=== PATIENT | female | born 1995 | race Caucasian/White ===

== ENCOUNTER 2016-10-07 11:16 | Inpatient (IN) ==
--- NOTE | 2016-10-07 11:39 | Emergency Department Note ---
Disposition Clinical Impression: Suicide attempt Depression Qualifiers: Depression Type: major depressive disorder Major depression recurrence: recurrent Major depression episode severity: moderate Intentional acetaminophen overdose Qualifiers: Encounter type: initial encounter Qualified Code(s): T39.1X2A - Poisoning by 4- Aminophenol derivatives, intentional self-harm, initial encounter Disposition: Admitted As Inpatient Condition: Good General Adult HPI - General Chief complaint: ED Psychiatric Symptoms Stated complaint: SI Time Seen by Provider: 10/07/16 11:20 Nursing Notes Reviewed: Yes Vital Signs Reviewed: Yes - Related Data Home Medications Medication Instructions Recorded Confirmed No Known Home Drugs 10/07/16 10/07/16 Allergies Allergy/AdvReac Type Severity Reaction Status Date / Time No Known Allergies Allergy Verified 10/07/16 11:46 Past Medical History - Past Medical History Medical history: Reports: no medical history Surgical history: Reports: other Psychiatric history: Reports: no psych history 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 - Social History Smoking Status: Current every day smoker Smokeless Tobacco Status: No Alcohol use: Reports: none Drug use: Reports: none Course Vital Signs Temperature 97.8 F 10/07/16 11:20 Pulse Rate 76 10/07/16 11:20 Respiratory Rate 15 10/07/16 11:20 Blood Pressure 112/75 10/07/16 11:20 O2 Sat by Pulse Oximetry 100 10/07/16 11:20 Temperature 97.4 F L 10/07/16 18:23 Pulse Rate 84 10/07/16 18:23 Respiratory Rate 16 10/07/16 18:23 Blood Pressure 118/74 10/07/16 18:23 O2 Sat by Pulse Oximetry 100 10/07/16 11:20 Oxygen Delivery Oxygen Delivery Room Air Medical Decision Making - MDM Narrative Medical decision making narrative: I examined this patient and my medical decision-making was reviewed with the SUPERVISOR CRACK OFF/PA/Advanced Practice Nurse/Resident Physician. I agree with the documented findings, disposition and treatment plan as described except to the extent set forth below. Patient was seen and evaluated today by myself and Dr. Hernandez, I agree with his evaluation and management plan, supervise care the patient's stay. Patient has a history of depression. She says she took multiple medications around 10 AM this morning consisting of acetaminophen over- the-counter Aleve Motrin her mom's pain medication which is most likely a narcotic. She is not sedated here. She appears to be stable she will need seen by psychiatry after she is medically cleared. Regular seen him at the level lab she will need a repeat acetaminophen level done at 2 PM as that will make a 4 hour level. She family is in agreement with plan. 1230 hrs.: Patient's initial acetaminophen level was 22, we will get a 4 hour level at 1300 hrs. to determine her potential for risk on the [place] nomogram. Her other labs are reviewed. She stable at this time. [address] Once her repeat acetaminophen level is back will determine whether she needs medical admission or she needs psychiatric admission and evaluation. 1430 hrs.: Patient's repeat acetaminophen level is 22 which is well below the 150 line on the nomogram. Reconfirmed with her time ingestion was 10 AM. Were going to clear her to be evaluated by 1A. She is in agreement with this plan. Family is updated. 1730 hrs.: 1A agrees to admit her. She has a [address] impression is that depression, suicide attempt, - Lab Data Result diagrams: 10/07/16 11:41 10/07/16 11:41 Lab Results 10/07/16 10/07/16 10/07/16 Range/Units 11:41 11:41 11:50 WBC 9.9 (4.3-11.1) K/mcL RBC 5.05 H (3.82-4.97) M/mcL Hgb 14.0 (11.5-15.4) g/dL Hct 42.3 (35.3-44.9) % MCV 83.8 (83.0-100.0) fL MCH 27.7 L (28.0-33.3) pg MCHC 33.1 (31.6-35.5) g/dL RDW 13.7 (11.5-14.5) % Plt Count 286 (140-400) K/mcL MPV 9.9 (9.4-12.4) fL Immature Gran % 0.2 (0-4) % Seg Neutrophils % 73.7 % Lymphocytes % 20.8 % Monocytes % 4.3 % Eosinophils % 0.6 % Basophils % 0.4 % Neutrophils # 7.3 (1.6-8.9) K/mcL Lymphocytes # 2.1 (0.6-4.6) K/mcL Monocytes # 0.4 (0.0-1.3) K/mcL Eosinophils # 0.1 (0.0-0.6) K/mcL Basophils # 0.0 (0.0-0.2) K/mcL Sodium 137 (136-145) mEq/L Potassium 4.1 (3.5-4.5) mEq/L Chloride 107 (98-109) mEq/L Carbon Dioxide 19 (19-29) mEq/L BUN 13 (7-20) mg/dL Creatinine 0.85 (0.57-1.11) mg/dL Est GFR ( Amer) > 60 (> 60) Est GFR (Non-Af Amer) > 60 (> 60) BUN/Creatinine Ratio 15 (6-26) Glucose 118 H (70-99) mg/dL Calculated Osmolality 285 (280-300) Calcium 9.8 (8.6-10.8) mg/dL Total Bilirubin 1.5 H (0.2-1.2) mg/dL AST 13 (5-34) Units/L ALT 15 (0-55) Units/L Alkaline Phosphatase 61 (38-126) Units/L Serum Total Protein 7.6 (6.0-8.3) g/dL Albumin 4.2 (3.5-5.0) g/dL Globulin 3.4 (2.4-3.5) g/dL Albumin/Globulin Ratio 1.2 (1.1-2.2) Urine Color Yellow (Yellow) Urine Clarity Cloudy A (Clear) Urine pH 6.0 (5.0-8.0) pH Units Ur Specific [place] > 1.030 H (1.010-1.025) Urine Protein 30 H (Neg-Trace) mg/dL Urine Glucose (UA) Normal (Normal) mg/dL Urine Ketones 40 H (Negative) mg/dL Urine Blood Negative (Negative) Urine Nitrite Negative (Negative) Urine Bilirubin Small H (Negative) Urine Urobilinogen Normal (Normal) mg/dL Ur Leukocyte Esterase Trace H (Negative) Urine Microscopic WBC 5-15 H (0-3) per hpf Ur Squamous Epith Cells Many H (None-Few) per lpf Urine Bacteria Many H (None-Few) per hpf Ur Culture Indicated? YES A (NO) Urine Test (Negative) Salicylates < 5.0 L (15-30) mg/dL Urine Opiates Screen (Pbphfb=083) ng/mL Acetaminophen 22.0 (10-30) mcg/mL Ur Barbiturates Screen (Muanuo=218) ng/mL Ur Phencyclidine Scrn (Cutoff=25) ng/mL Ur Amphetamines Screen (Hxzusz=0976) ng/mL U Benzodiazepines Scrn (Hwscrq=347) ng/mL Urine Cocaine Screen (Cutoff= 300) ng/mL U Marijuana (THC) Screen (Cutoff = 50) ng/mL Ethyl Alcohol < 10 (0-10) mg/dL 10/07/16 10/07/16 10/07/16 Range/Units 11:50 11:50 14:10 WBC (4.3-11.1) K/mcL RBC (3.82-4.97) M/mcL Hgb (11.5-15.4) g/dL Hct (35.3-44.9) % MCV (83.0-100.0) fL MCH (28.0-33.3) pg MCHC (31.6-35.5) g/dL RDW (11.5-14.5) % Plt Count (140-400) K/mcL MPV (9.4-12.4) fL Immature Gran % (0-4) % Seg Neutrophils % % Lymphocytes % % Monocytes % % Eosinophils % % Basophils % % Neutrophils # (1.6-8.9) K/mcL Lymphocytes # (0.6-4.6) K/mcL Monocytes # (0.0-1.3) K/mcL Eosinophils # (0.0-0.6) K/mcL Basophils # (0.0-0.2) K/mcL Sodium (136-145) mEq/L Potassium (3.5-4.5) mEq/L Chloride (98-109) mEq/L Carbon Dioxide (19-29) mEq/L BUN (7-20) mg/dL Creatinine (0.57-1.11) mg/dL Est GFR ( Amer) (> 60) Est GFR (Non-Af Amer) (> 60) BUN/Creatinine Ratio (6-26) Glucose (70-99) mg/dL Calculated Osmolality (280-300) Calcium (8.6-10.8) mg/dL Total Bilirubin (0.2-1.2) mg/dL AST (5-34) Units/L ALT (0-55) Units/L Alkaline Phosphatase (38-126) Units/L Serum Total Protein (6.0-8.3) g/dL Albumin (3.5-5.0) g/dL Globulin (2.4-3.5) g/dL Albumin/Globulin Ratio (1.1-2.2) Urine Color (Yellow) Urine Clarity (Clear) Urine pH (5.0-8.0) pH Units Ur Specific [place] (1.010-1.025) Urine Protein (Neg-Trace) mg/dL Urine Glucose (UA) (Normal) mg/dL Urine Ketones (Negative) mg/dL Urine Blood (Negative) Urine Nitrite (Negative) Urine Bilirubin (Negative) Urine Urobilinogen (Normal) mg/dL Ur Leukocyte Esterase (Negative) Urine Microscopic WBC (0-3) per hpf Ur Squamous Epith Cells (None-Few) per lpf Urine Bacteria (None-Few) per hpf Ur Culture Indicated? (NO) Urine Test Negative (Negative) Salicylates (15-30) mg/dL Urine Opiates Screen Positive H (Ivpfgc=331) ng/mL Acetaminophen 22.0 (10-30) mcg/mL Ur Barbiturates Screen Negative (Jtnjtx=658) ng/mL Ur Phencyclidine Scrn Negative (Cutoff=25) ng/mL Ur Amphetamines Screen Negative (Nrlmpg=4953) ng/mL U Benzodiazepines Scrn Negative (Heudsh=536) ng/mL Urine Cocaine Screen Negative (Cutoff= 300) ng/mL U Marijuana (THC) Screen Negative (Cutoff = 50) ng/mL Ethyl Alcohol (0-10) mg/dL
--- NOTE | 2016-10-07 11:40 | Emergency Department Note ---
Disposition Clinical Impression: Suicide attempt Depression Qualifiers: Depression Type: major depressive disorder Major depression recurrence: recurrent Active/Remission status: currently active Major depression episode severity: unspecified Qualified Code(s): F33.9 - Major depressive disorder, recurrent, unspecified Intentional acetaminophen overdose Qualifiers: Encounter type: initial encounter Qualified Code(s): T39.1X2A - Poisoning by 4- Aminophenol derivatives, intentional self-harm, initial encounter Disposition: Admitted As Inpatient Condition: Good Time of Disposition: 17:28 Psych HPI - General Chief Complaint: ED Psychiatric Symptoms Stated Complaint: SI Time Seen by Provider: 10/07/16 11:20 Source: patient Mode of arrival: ambulatory Limitations: no limitations Nursing Notes Reviewed: Yes Vital Signs Reviewed: Yes - History of Present Illness HPI Narrative: 21-year-old female history of depression and prescription drug abuse presents to the ED for suicidal attempt. Patient reports a verbal argument with her last night. Today she woke up and did not want to live. She reports taking multiple medications today including Tylenol, aspirin, Advil and mothers prescription pain medications. She reports taking all at 10 o'clock this morning. The Tylenol was a full bottle and roughly contained 120 pills she reports. Denies any nausea or vomiting. Reports attempting to hang herself around 0800 this morning but the rope broke. She has an abrasion on her left forehead from playful wrestling with her . She denies any shortness of breath, difficulty in swallowing or neck pain. History of prior suicidal attempt 4 years ago 2011 which required admission. She denies any other drug use such as alcohol or IV drugs. Also reports prescribed Zoloft since 2011 but has not taken it for the last 4 months since May. Denies any visual or auditory hallucinations. - Related Data Home Medications Medication Instructions Recorded Confirmed No Known Home Drugs 10/07/16 10/07/16 Allergies Allergy/AdvReac Type Severity Reaction Status Date / Time No Known Allergies Allergy Verified 10/07/16 11:46 All systems ED: reviewed and negative except as stated. Constitutional: Denies: fever, chills Cardiovascular: Denies: chest pain Respiratory: Denies: cough, dyspnea Gastrointestinal: Denies: abdominal pain, nausea, vomiting, diarrhea Genitourinary: Denies: urgency, dysuria Musculoskeletal: Denies: back pain, neck pain Integumentary: Denies: rash, abrasion, lesions Neurological: Denies: headache Psychiatric: Reports: anxiety, depression, suicidal thoughts Past Medical History - Past Medical History Attestation: Yes The following information was validated with the patient. 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 Absent: tenderness - Expanded Neck Exam Neck exam focused ED: Absent: midline tenderness, anterior neck swelling - Chest Chest inspection: Present: normal inspection, symmetric chest wall rise - Respiratory Respiratory exam: Present: normal lung sounds bilaterally. Absent: respiratory distress - Cardiovascular Cardiovascular exam: Present: regular rate, normal rhythm, normal heart sounds. Absent: systolic murmur, diastolic murmur - Abdominal Exam Abdominal exam: Present: soft, Non-Tender, normal bowel sounds. Absent: tenderness, distention, guarding, rebound, rigidity - Extremities Exam Extremities exam: Present: normal inspection, full ROM, normal capillary refill. Absent: tenderness, pedal edema, calf tenderness - Expanded Upper Extremity Exam Shoulder exam: Present: normal inspection, full ROM Arm exam: Present: normal inspection, full ROM Elbow exam: Present: normal inspection, full ROM Forearm/Wrist exam: Present: normal inspection, full ROM Hand exam: Present: normal inspection, full ROM Vascular exam: Normal: capillary refill, radial pulse - Expanded Lower Extremity Exam Hip/Pelvis exam: Present: normal inspection, full ROM Upper leg exam: Present: normal inspection, full ROM Knee exam: Present: normal inspection, full ROM Lower leg exam: Present: normal inspection, full ROM Ankle exam: Present: normal inspection, full ROM Foot/toe exam: Present: normal inspection, full ROM Neurovascular/Tendon exam: Present: normal capillary refill. Absent: pulse deficit, motor deficit, sensory deficit, tendon deficit - Back Exam Back exam: Present: normal inspection, full ROM. Absent: tenderness, CVA tenderness (R), CVA tenderness (L), vertebral tenderness - Neurological Exam Neurological exam: Present: alert, oriented X3 - Psychiatric Psychiatric exam: Present: normal affect, normal mood - Skin Skin exam: Present: warm, dry, intact, normal color Course Course Narrative: 21-year-old female with suicide attempt. She is alert and oriented to person place and time. She is awake and does not appear sedated. No acute distress. No anterior neck swelling or extremity weakness. No midline tenderness. We will get basic labs for medical clearance and I-A consult. Due to report of tylenol ingestion will get a 4 hour APAP level. [place] slip signed and placed on chart. - Reevaluation(s) Reevaluation #1: Tylenol elevated at 22. Opiate positive. This is consistent with her story. Urine appears contaminated with many squamous cells and trace leuk esterase. Will check a repeat in tylenol in 2 hours for a 4 hour post-ingestion level. Time: 12:08 Reevaluation #2: Repeat Tylenol 22 at 4 hours post ingestion. This is well below the 150 on the nomogram. Reconfirmed with her the time of ingestion and reports at 1000. She is cleared for evaluation for 1-A. Family updated of labs results and urine. Patient is in agreement with this plan. Appropriate for 1-A consult at this time. Time: 14:43 - Consultations Consultation #1: Spoke with Gaston from 1-A. Due to suicide attempt with intentional drug ingestion and failed hanging, appropriate for admission to 1-A. Impression is suicide attempt with intentional tylenol ingestion. Patient is in no acute distress. She has pink slipped 72 hour hold signed and on her chart. Time: 17:39 Vital Signs Temperature 97.8 F 10/07/16 11:20 Pulse Rate 76 10/07/16 11:20 Respiratory Rate 15 10/07/16 11:20 Blood Pressure 112/75 10/07/16 11:20 O2 Sat by Pulse Oximetry 100 10/07/16 11:20 Temperature 97.4 F L 10/07/16 21:00 Pulse Rate 65 10/07/16 21:00 Respiratory Rate 16 10/07/16 21:00 Blood Pressure 126/81 10/07/16 21:00 O2 Sat by Pulse Oximetry 100 10/07/16 11:20 Oxygen Delivery Oxygen Delivery Room Air Psych - Medical Records Medical records reviewed: Yes I reviewed the patient's medical records. - Lab Data Lab results reviewed: Yes I reviewed the patient's lab results. Result diagrams: 10/07/16 11:41 10/07/16 11:41 Lab Results 10/07/16 10/07/16 10/07/16 Range/Units 11:41 11:41 11:50 WBC 9.9 (4.3-11.1) K/mcL RBC 5.05 H (3.82-4.97) M/mcL Hgb 14.0 (11.5-15.4) g/dL Hct 42.3 (35.3-44.9) % MCV 83.8 (83.0-100.0) fL MCH 27.7 L (28.0-33.3) pg MCHC 33.1 (31.6-35.5) g/dL RDW 13.7 (11.5-14.5) % Plt Count 286 (140-400) K/mcL MPV 9.9 (9.4-12.4) fL Immature Gran % 0.2 (0-4) % Seg Neutrophils % 73.7 % Lymphocytes % 20.8 % Monocytes % 4.3 % Eosinophils % 0.6 % Basophils % 0.4 % Neutrophils # 7.3 (1.6-8.9) K/mcL Lymphocytes # 2.1 (0.6-4.6) K/mcL Monocytes # 0.4 (0.0-1.3) K/mcL Eosinophils # 0.1 (0.0-0.6) K/mcL Basophils # 0.0 (0.0-0.2) K/mcL Sodium 137 (136-145) mEq/L Potassium 4.1 (3.5-4.5) mEq/L Chloride 107 (98-109) mEq/L Carbon Dioxide 19 (19-29) mEq/L BUN 13 (7-20) mg/dL Creatinine 0.85 (0.57-1.11) mg/dL Est GFR ( Amer) > 60 (> 60) Est GFR (Non-Af Amer) > 60 (> 60) BUN/Creatinine Ratio 15 (6-26) Glucose 118 H (70-99) mg/dL Calculated Osmolality 285 (280-300) Calcium 9.8 (8.6-10.8) mg/dL Total Bilirubin 1.5 H (0.2-1.2) mg/dL AST 13 (5-34) Units/L ALT 15 (0-55) Units/L Alkaline Phosphatase 61 (38-126) Units/L Serum Total Protein 7.6 (6.0-8.3) g/dL Albumin 4.2 (3.5-5.0) g/dL Globulin 3.4 (2.4-3.5) g/dL Albumin/Globulin Ratio 1.2 (1.1-2.2) Urine Color Yellow (Yellow) Urine Clarity Cloudy A (Clear) Urine pH 6.0 (5.0-8.0) pH Units Ur Specific [place] > 1.030 H (1.010-1.025) Urine Protein 30 H (Neg-Trace) mg/dL Urine Glucose (UA) Normal (Normal) mg/dL Urine Ketones 40 H (Negative) mg/dL Urine Blood Negative (Negative) Urine Nitrite Negative (Negative) Urine Bilirubin Small H (Negative) Urine Urobilinogen Normal (Normal) mg/dL Ur Leukocyte Esterase Trace H (Negative) Urine Microscopic WBC 5-15 H (0-3) per hpf Ur Squamous Epith Cells Many H (None-Few) per lpf Urine Bacteria Many H (None-Few) per hpf Ur Culture Indicated? YES A (NO) Urine Test (Negative) Salicylates < 5.0 L (15-30) mg/dL Urine Opiates Screen (Hnaawx=047) ng/mL Acetaminophen 22.0 (10-30) mcg/mL Ur Barbiturates Screen (Ydyrsg=598) ng/mL Ur Phencyclidine Scrn (Cutoff=25) ng/mL Ur Amphetamines Screen (Sgdaxi=9553) ng/mL U Benzodiazepines Scrn (Rudpkd=016) ng/mL Urine Cocaine Screen (Cutoff= 300) ng/mL U Marijuana (THC) Screen (Cutoff = 50) ng/mL Ethyl Alcohol < 10 (0-10) mg/dL 10/07/16 10/07/16 10/07/16 Range/Units 11:50 11:50 14:10 WBC (4.3-11.1) K/mcL RBC (3.82-4.97) M/mcL Hgb (11.5-15.4) g/dL Hct (35.3-44.9) % MCV (83.0-100.0) fL MCH (28.0-33.3) pg MCHC (31.6-35.5) g/dL RDW (11.5-14.5) % Plt Count (140-400) K/mcL MPV (9.4-12.4) fL Immature Gran % (0-4) % Seg Neutrophils % % Lymphocytes % % Monocytes % % Eosinophils % % Basophils % % Neutrophils # (1.6-8.9) K/mcL Lymphocytes # (0.6-4.6) K/mcL Monocytes # (0.0-1.3) K/mcL Eosinophils # (0.0-0.6) K/mcL Basophils # (0.0-0.2) K/mcL Sodium (136-145) mEq/L Potassium (3.5-4.5) mEq/L Chloride (98-109) mEq/L Carbon Dioxide (19-29) mEq/L BUN (7-20) mg/dL Creatinine (0.57-1.11) mg/dL Est GFR ( Amer) (> 60) Est GFR (Non-Af Amer) (> 60) BUN/Creatinine Ratio (6-26) Glucose (70-99) mg/dL Calculated Osmolality (280-300) Calcium (8.6-10.8) mg/dL Total Bilirubin (0.2-1.2) mg/dL AST (5-34) Units/L ALT (0-55) Units/L Alkaline Phosphatase (38-126) Units/L Serum Total Protein (6.0-8.3) g/dL Albumin (3.5-5.0) g/dL Globulin (2.4-3.5) g/dL Albumin/Globulin Ratio (1.1-2.2) Urine Color (Yellow) Urine Clarity (Clear) Urine pH (5.0-8.0) pH Units Ur Specific [place] (1.010-1.025) Urine Protein (Neg-Trace) mg/dL Urine Glucose (UA) (Normal) mg/dL Urine Ketones (Negative) mg/dL Urine Blood (Negative) Urine Nitrite (Negative) Urine Bilirubin (Negative) Urine Urobilinogen (Normal) mg/dL Ur Leukocyte Esterase (Negative) Urine Microscopic WBC (0-3) per hpf Ur Squamous Epith Cells (None-Few) per lpf Urine Bacteria (None-Few) per hpf Ur Culture Indicated? (NO) Urine Test Negative (Negative) Salicylates (15-30) mg/dL Urine Opiates Screen Positive H (Rfurej=617) ng/mL Acetaminophen 22.0 (10-30) mcg/mL Ur Barbiturates Screen Negative (Hgeodn=641) ng/mL Ur Phencyclidine Scrn Negative (Cutoff=25) ng/mL Ur Amphetamines Screen Negative (Gggzet=3362) ng/mL U Benzodiazepines Scrn Negative (Yzajaq=450) ng/mL Urine Cocaine Screen Negative (Cutoff= 300) ng/mL U Marijuana (THC) Screen Negative (Cutoff = 50) ng/mL Ethyl Alcohol (0-10) mg/dL Psychiatric Medical Clearance - Medical Clearance Checklist Medical History: No Social History Section defined Current Vitals: Last Vital Signs Temp 97.4 F L 10/07/16 21:00 Pulse 65 10/07/16 21:00 Resp 16 10/07/16 21:00 BP 126/81 10/07/16 21:00 Pulse Ox 100 10/07/16 11:20 Psychiatric Lab Panel: Drug Levels and Toxicity 10/07/16 10/07/16 10/07/16 11:41 11:50 14:10 Urine Opiates Screen Positive H Acetaminophen 22.0 22.0 Ur Barbiturates Screen Negative Ur Phencyclidine Scrn Negative Ur Amphetamines Screen Negative U Benzodiazepines Scrn Negative Urine Cocaine Screen Negative U Marijuana (THC) Screen Negative Ethyl Alcohol < 10 Abnormal Labs: Abnormal lab results RBC 5.05 M/mcL (3.82-4.97) H 10/07/16 11:41 MCH 27.7 pg (28.0-33.3) L 10/07/16 11:41 Glucose 118 mg/dL (70-99) H 10/07/16 11:41 Total Bilirubin 1.5 mg/dL (0.2-1.2) H 10/07/16 11:41 Urine Clarity Cloudy (Clear) A 10/07/16 11:50 Ur Specific [place] > 1.030 (1.010-1.025) H 10/07/16 11:50 Urine Protein 30 mg/dL (Neg-Trace) H 10/07/16 11:50 Urine Ketones 40 mg/dL (Negative) H 10/07/16 11:50 Urine Bilirubin Small (Negative) H 10/07/16 11:50 Ur Leukocyte Esterase Trace (Negative) H 10/07/16 11:50 Urine Microscopic WBC 5-15 per hpf (0-3) H 10/07/16 11:50 Ur Squamous Epith Cells Many per lpf (None-Few) H 10/07/16 11:50 Urine Bacteria Many per hpf (None-Few) H 10/07/16 11:50 Ur Culture Indicated? YES (NO) A 10/07/16 11:50 Salicylates < 5.0 mg/dL (15-30) L 10/07/16 11:41 Urine Opiates Screen Positive ng/mL (Yinxdh=875) H 10/07/16 11:50 Statement of Medical Clearance: I have evaluated the patient, reviewed diagnostic information, and certify that the patient's medical condition is sufficiently stable that transfer to the psychiatric unit does not pose a significant risk of deterioration.
[2016-10-07 11:49] LABS: Basophils % 0.4 %; Eosinophils # 0.1 K/mcL (0.0-0.6); Eosinophils % 0.6 %; Hematocrit 42.3 % (35.3-44.9); Immature Granulocytes % 0.2 % (0-4); Lymphocytes # 2.1 K/mcL (0.6-4.6); Lymphocytes % 20.8 %; Mean Corpuscular HGB Conc 33.1 g/dL (31.6-35.5); Mean Corpuscular Hemoglobin 27.7 pg (28.0-33.3); Mean Corpuscular Volume 83.8 fL (83.0-100.0); Mean Platelet Volume 9.9 fL (9.4-12.4); Monocytes # 0.4 K/mcL (0.0-1.3); Monocytes % 4.3 %; Neutrophils # 7.3 K/mcL (1.6-8.9); Platelet Count 286 K/mcL (140-400); Red Blood Count 5.05 M/mcL (3.82-4.97); Red Cell Distribution Width 13.7 % (11.5-14.5); Segmented Neutrophils % 73.7 %
[2016-10-07 12:01] LABS: Bilirubin,Urine Small (Negative); Blood,Urine Negative (Negative); Clarity,Urine Cloudy (Clear); Color,Urine Yellow (Yellow); Glucose,Urine (UA) Normal (Normal); Ketones,Urine 40 mg/dL (Negative); Leukocyte Esterase,Urine Trace (Negative); Nitrite,Urine Negative (Negative); Protein,Urine 30 mg/dL (Neg-Trace); Specific Gravity,Urine > 1.030 (1.010-1.025); Urobilinogen,Urine Normal (Normal)
[2016-10-07 12:03] LABS: Bacteria,Urine Many per hpf (None-Few); Squamous Epithelial Cell,Urine Many per lpf (None-Few)
[2016-10-07 12:03] LABS: Alanine Aminotransferase 15 Units/L (0-55); Albumin 4.2 g/dL (3.5-5.0); Albumin/Globulin Ratio 1.2 (1.1-2.2); Alkaline Phosphatase 61 Units/L (38-126); Aspartate Amino Transferase 13 Units/L (5-34); BUN/Creatinine Ratio 15 (6-26); Bilirubin,Total 1.5 mg/dL (0.2-1.2); Blood Urea Nitrogen 13 mg/dL (7-20); Calcium 9.8 mg/dL (8.6-10.8); Carbon Dioxide 19 mEq/L (19-29); Chloride 107 mEq/L (98-109); Globulin 3.4 g/dL (2.4-3.5); Glucose 118 mg/dL (70-99); Osmolality,Calculated 285 (280-300); Potassium 4.1 mEq/L (3.5-4.5); Sodium 137 mEq/L (136-145); Total Protein 7.6 g/dL (6.0-8.3); eGFR For African Americans > 60 (> 60); eGFR For Non-African Americans > 60 (> 60)
[2016-10-07 12:04] LABS: Ethanol < 10 mg/dL (0-10); Salicylate < 5.0 mg/dL (15-30)
[2016-10-07 12:06] LABS: Amphetamine Screen,Urine Negative ng/mL (Cutoff=1000); Barbiturate Screen,Urine Negative ng/mL (Cutoff=200); Benzodiazepines Screen,Urine Negative ng/mL (Cutoff=200); Cannabinoid Screen,Urine Negative ng/mL (Cutoff = 50); Cocaine Screen,Urine Negative ng/mL (Cutoff= 300); Opiate Screen,Urine Positive ng/mL (Cutoff=300); Phencyclidine Screen,Urine Negative ng/mL (Cutoff=25)
[2016-10-07] MEDS ORDERED: *HR* LORazepam 2 MG/ML VIAL IM PRN (18:17)
[2016-10-07] MEDS ORDERED: hydrOXYzine pamoate 25 MG CAPSULE PO PRN (18:17)
[2016-10-07] MEDS ORDERED: Haloperidol Lactate 5 MG/ML VIAL IM PRN (18:17)
[2016-10-07] MEDS ORDERED: MOM Conc 10 ML UD.LIQ PO PRN (18:17)
[2016-10-07] MEDS ORDERED: Nicotine 2 MG GUM BC PRN (18:17)
[2016-10-07] MEDS ORDERED: Acetaminophen 325 MG TABLET PO PRN (18:17)
[2016-10-07] MEDS ORDERED: *HR* LORazepam 1 MG TABLET PO PRN (18:17)
[2016-10-07] MEDS ORDERED: Mag Hydrox/Al Hydrox/Simeth 30 ML UDC PO PRN (18:17)
--- NOTE | 2016-10-08 09:56 | Psychiatry History & Physical ---
Date of Encounter: 10/08/16 Time of Encounter: 09:54 History of Present Illness Patient Stated Chief Complaint: Suicidal Medicare Admission Attestation: For traditional Medicare patients the provided hospital inpatient services are reasonable and necessary and in the case of services not specified as inpatient -only under 42 CFR 419.22 (n), that they are appropriately provided as inpatient services in accordance 42 CFR 412.3. For Critical Access Hospital the patient may reasonably be expected to be discharged or transferred to a hospital within 96 hours after admission to the Critical Access Hospital. Admitted From: Emergency Dept History of Present Illness: Ms. Nunez is a 21 year old female admitted from the emergency department for evaluation of suicidal ideation. Patient is stressed out by relationship problem between her and her significant other. Patient stated that she had no previous attempted suicide In the past but she was cutting herself until 2 years ago. Patient had some counseling and treatment for depression with Zoloft in the past but denies any psychiatric hospitalization. Patient denies any mental illness history in the family. She is going to school to get her STD and a certification and currently unemployed. She smokes one pack cigarettes a day and consumes some caffeine but denies any alcohol products or drugs. Past Med Surg Social Fam HX - Past Medical History Medical history: no medical history - Past Psychiatric History Psychiatric history: Reports: anxiety, depression. Denies: prior suicide attempt, previous psychiatric hospitalization Family psychiatric history: Unknown Family History of Suicide: Unknown - Past Surgical History Surgical History: other - Social History Smoking Status: Current every day smoker Smokeless Tobacco Status: No Alcohol use: none Drug use: none Medications & Allergies No Known Home Drugs 10/07/16 [History] Allergies No Known Allergies Allergy (Verified 10/07/16 11:46) Review of Systems Psychiatric: Reports: depression, anxiety, suicidal ideation Mental Status Exam Patient orientation: Yes Person, Yes Time, Yes Place Level of alertness: Alert Patient appearance: Appropriate, Well Groomed, Obese Behavior: calm, cooperative Psychomotor activity: Normal Eye contact: Maintains Eye Contact Mood description: Euthymic/stable Affect description: congruent with mood, full range Speech pattern: Normal rate, Normal rhythm, Normal tone Speech volume: Normal Thought process: Linear, Goal Oriented Thought content: Yes Suicidal ideation, No Homicidal ideation, No Overt delusions Perceptual disturbances: No Auditory hallucinations, No Visual hallucinations Attention span: Capable of Focused Attention Memory description: Grossly Intact Patient reliability: Reliable Historian Intelligence estimate: Average Judgment: Limited Insight: Partial Results - Vital Signs Vital signs: Temp Pulse Resp BP Pulse Ox 97.4 F L 65 16 126/81 100 10/07/16 21:00 10/07/16 21:00 10/07/16 21:00 10/07/16 21:00 10/07/16 11:20 - Labs Labs: Laboratory Last Values WBC 9.9 K/mcL (4.3-11.1) 10/07/16 11:41 RBC 5.05 M/mcL (3.82-4.97) H 10/07/16 11:41 Hgb 14.0 g/dL (11.5-15.4) 10/07/16 11:41 Hct 42.3 % (35.3-44.9) 10/07/16 11:41 MCV 83.8 fL (83.0-100.0) 10/07/16 11:41 MCH 27.7 pg (28.0-33.3) L 10/07/16 11:41 MCHC 33.1 g/dL (31.6-35.5) 10/07/16 11:41 RDW 13.7 % (11.5-14.5) 10/07/16 11:41 Plt Count 286 K/mcL (140-400) 10/07/16 11:41 MPV 9.9 fL (9.4-12.4) 10/07/16 11:41 Immature Gran % 0.2 % (0-4) 10/07/16 11:41 Seg Neutrophils % 73.7 % 10/07/16 11:41 Lymphocytes % 20.8 % 10/07/16 11:41 Monocytes % 4.3 % 10/07/16 11:41 Eosinophils % 0.6 % 10/07/16 11:41 Basophils % 0.4 % 10/07/16 11:41 Neutrophils # 7.3 K/mcL (1.6-8.9) 10/07/16 11:41 Lymphocytes # 2.1 K/mcL (0.6-4.6) 10/07/16 11:41 Monocytes # 0.4 K/mcL (0.0-1.3) 10/07/16 11:41 Eosinophils # 0.1 K/mcL (0.0-0.6) 10/07/16 11:41 Basophils # 0.0 K/mcL (0.0-0.2) 10/07/16 11:41 Sodium 137 mEq/L (136-145) 10/07/16 11:41 Potassium 4.1 mEq/L (3.5-4.5) 10/07/16 11:41 Chloride 107 mEq/L (98-109) 10/07/16 11:41 Carbon Dioxide 19 mEq/L (19-29) 10/07/16 11:41 BUN 13 mg/dL (7-20) 10/07/16 11:41 Creatinine 0.85 mg/dL (0.57-1.11) 10/07/16 11:41 Est GFR ( Amer) > 60 (> 60) 10/07/16 11:41 Est GFR (Non-Af Amer) > 60 (> 60) 10/07/16 11:41 BUN/Creatinine Ratio 15 (6-26) 10/07/16 11:41 Glucose 118 mg/dL (70-99) H 10/07/16 11:41 Calculated Osmolality 285 (280-300) 10/07/16 11:41 Calcium 9.8 mg/dL (8.6-10.8) 10/07/16 11:41 Total Bilirubin 1.5 mg/dL (0.2-1.2) H 10/07/16 11:41 AST 13 Units/L (5-34) 10/07/16 11:41 ALT 15 Units/L (0-55) 10/07/16 11:41 Alkaline Phosphatase 61 Units/L (38-126) 10/07/16 11:41 Serum Total Protein 7.6 g/dL (6.0-8.3) 10/07/16 11:41 Albumin 4.2 g/dL (3.5-5.0) 10/07/16 11:41 Globulin 3.4 g/dL (2.4-3.5) 10/07/16 11:41 Albumin/Globulin Ratio 1.2 (1.1-2.2) 10/07/16 11:41 Urine Color Yellow (Yellow) 10/07/16 11:50 Urine Clarity Cloudy (Clear) A 10/07/16 11:50 Urine pH 6.0 pH Units (5.0-8.0) 10/07/16 11:50 Ur Specific [place] > 1.030 (1.010-1.025) H 10/07/16 11:50 Urine Protein 30 mg/dL (Neg-Trace) H 10/07/16 11:50 Urine Glucose (UA) Normal mg/dL (Normal) 10/07/16 11:50 Urine Ketones 40 mg/dL (Negative) H 10/07/16 11:50 Urine Blood Negative (Negative) 10/07/16 11:50 Urine Nitrite Negative (Negative) 10/07/16 11:50 Urine Bilirubin Small (Negative) H 10/07/16 11:50 Urine Urobilinogen Normal mg/dL (Normal) 10/07/16 11:50 Ur Leukocyte Esterase Trace (Negative) H 10/07/16 11:50 Urine Microscopic WBC 5-15 per hpf (0-3) H 10/07/16 11:50 Ur Squamous Epith Cells Many per lpf (None-Few) H 10/07/16 11:50 Urine Bacteria Many per hpf (None-Few) H 10/07/16 11:50 Ur Culture Indicated? YES (NO) A 10/07/16 11:50 Urine Test Negative (Negative) 10/07/16 11:50 Salicylates < 5.0 mg/dL (15-30) L 10/07/16 11:41 Urine Opiates Screen Positive ng/mL (Sfwrjg=620) H 10/07/16 11:50 Acetaminophen 22.0 mcg/mL (10-30) 10/07/16 14:10 Ur Barbiturates Screen Negative ng/mL (Kphcap=220) 10/07/16 11:50 Ur Phencyclidine Scrn Negative ng/mL (Cutoff=25) 10/07/16 11:50 Ur Amphetamines Screen Negative ng/mL (Rcxkvq=3305) 10/07/16 11:50 U Benzodiazepines Scrn Negative ng/mL (Glbwny=091) 10/07/16 11:50 Urine Cocaine Screen Negative ng/mL (Cutoff= 300) 10/07/16 11:50 U Marijuana (THC) Screen Negative ng/mL (Cutoff = 50) 10/07/16 11:50 Ethyl Alcohol < 10 mg/dL (0-10) 10/07/16 11:41 Assessment and Plan (1) Depression, major, recurrent, moderate Current visit: Yes Status: Acute Plan: Admit inpatient for safety and stabilization, Close observation, Suicide Precautions per unit protocol, Encourage participation in unit milieu, Group Therapy, Monitor sleep, Monitor appetite Additional Plan: We will start patient on Effexor XR 75 mg for treatment of depression. Benefits and side effects were discussed and she is agreeable. Risks, benefits, side effects, alternatives discussed w/pt: Yes Patient agreeable to treatment: Yes
[2016-10-08] MEDS: Venlafaxine XR (24 HR) 75 MG CAP.ER.24H PO SCH (11:55)
[2016-10-08] MEDS: traZODone 50 MG TABLET PO PRN (20:24)
[2016-10-09] MEDS: Venlafaxine XR (24 HR) 75 MG CAP.ER.24H PO SCH (09:18)
[2016-10-09] MEDS: Nicotine 21 MG PATCH.TD24 TD SCH (15:56)
[2016-10-09 20:07] VITALS: BP 126/74
[2016-10-09] MEDS: traZODone 50 MG TABLET PO PRN (22:00)
--- NOTE | 2016-10-10 08:30 | Psychiatry Progress Note ---
Date of Encounter: 10/09/16 Time of Encounter: 11:00 Subjective Interval history: Patient is here for follow-up. Staff reported that she tolerated the medication participation in groups and reported improved mood and denied suicidal ideation. Patient stated that she tolerated the medicine and denies any side effects she was making positive comments on being in the hospital she is looking forward to get her certification and stay busy. She is interested in learning skills and and applying that in crisis or stressful situation. She reports sleeping better. Review of Systems Psychiatric: Reports: depression, anxiety, suicidal ideation Objective: Exam Patient orientation: Yes Person, Yes Time, Yes Place Level of alertness: Alert Patient appearance: Appropriate, Well Groomed, Obese Behavior: calm, cooperative Psychomotor activity: Normal Eye contact: Maintains Eye Contact Mood description: Euthymic/stable Affect description: congruent with mood, full range Speech pattern: Normal rate, Normal rhythm, Normal tone Speech volume: Normal Thought process: Linear, Goal Oriented Thought content: No Suicidal ideation, No Homicidal ideation, No Overt delusions Perceptual disturbances: No Auditory hallucinations, No Visual hallucinations Judgment: Limited Insight: Partial Results - Vital Signs Vital Signs: Temp Pulse Resp BP Pulse Ox 97.4 F L 70 16 126/74 100 10/09/16 20:06 10/09/16 20:06 10/09/16 20:06 10/09/16 20:06 10/07/16 11:20 Assessment and Plan (1) Depression, major, recurrent, moderate Current visit: Yes Status: Acute Plan: Continue hospitalization, Close observation, Suicide Precautions per unit protocol, Encourage participation in unit milieu, Group Therapy, Monitor sleep, Monitor appetite Risks, benefits, side effects, alternatives discussed w/pt: Yes Patient agreeable to treatment: Yes Consult Discharge Plan - Plan Referrals: [facility] [Outside] - 11/02/16 2:00 pm (The above appointment is with Melissa Hoover for counseling. Please arrive 10 minutes early for all appointments to complete the check-in process. Please bring your insurance card or HCAP award letter, and photo ID to this appointment. If you are unable to keep this appointment, 24 hour business notice of cancellation is expected. If you miss your new patient appointment, you cannot be re-scheduled in this practice. The [facility] is the [facility] in [place], [place]. ) Swapnil Torres CNP [Advanced Practice Nurse] - 10/16/16 11:00 am (The above appointment is with Lia Torres.)
[2016-10-10] MEDS: Venlafaxine XR (24 HR) 75 MG CAP.ER.24H PO SCH (08:53)
[2016-10-10] MEDS: Nicotine 21 MG PATCH.TD24 TD SCH (08:54)
--- NOTE | 2016-10-10 10:20 | Discharge Summary ---
Date of Encounter: 10/10/16 Time of Encounter: 10:17 Diagnosis - Discharge Diagnosis (1) Depression, major, recurrent, moderate Status: Acute Medications - Discharge Medications Prescriptions: Venlafaxine XR (24 HR) [Effexor XR] 75 mg PO DAILY #30 cap.er.24h Venlafaxine XR (24 HR) [Effexor XR] 75 mg PO DAILY #30 cap.er.24h 10/10/16 [Rx] Allergies No Known Allergies Allergy (Verified 10/07/16 11:46) Provider Date of admission: 10/07/16 17:36 Primary care physician: PCP NO Discharging clinician: Jad Garcia Assessment and Plan - Patient/Caregiver Discharge Instructions Activity: resume usual activities as tolerated Diet: regular diet - Follow up Plan Follow up with: [facility] [Outside] - 11/02/16 2:00 pm (The above appointment is with Melissa Hoover for counseling. Please arrive 10 minutes early for all appointments to complete the check-in process. Please bring your insurance card or HCAP award letter, and photo ID to this appointment. If you are unable to keep this appointment, 24 hour business notice of cancellation is expected. If you miss your new patient appointment, you cannot be re-scheduled in this practice. The [facility] is the 1st building behind [facility] in [place], [place]. ) Swapnil Torres CNP [Advanced Practice Nurse] - 10/16/16 11:00 am (The above appointment is with Lia Torres.) Functional capacity at discharge: independent ambulation Overall status at discharge: Stable Disposition: Home, Self-Care Hospital Course Hospital course: Ms. Nunez is a 21 year old female admitted to the emergency room for evaluation depression and suicidal ideation. For details of the admission please see H&P On the unit patient was started on Effexor XR 75 mg she tolerated the medication and denied side effects and reported improved sleep and improved somewhat. She participated in groups and activities she denies any problem with sleep appetite she denied any suicidal ideation she was future oriented and excited about certification and a new job . Discharge follow-up plans were completed by social secretary. - Time Spent with Patient Total time spent providing and/or coordinating discharge services: Less than 30 minutes Quality - Multiple Antipsychotics Patient discharged on 2 or more antipsychotic medications: No Procedures - Procedures Procedures: Medication Management, Crisis Stabilization, Supportive Therapy, Group Therapy, Psychoeducational Therapy Mental Status Exam - Mental Status Exam Patient orientation: Yes Person, Yes Time, Yes Place Level of alertness: Alert Patient appearance: Appropriate, Well Groomed, Obese Behavior: calm, cooperative Psychomotor activity: Normal Eye contact: Maintains Eye Contact Mood description: Euthymic/stable Affect description: congruent with mood, full range Speech pattern: Normal rate, Normal rhythm, Normal tone Speech Volume: Normal Thought process: Linear, Goal Oriented Thought Content: No Suicidal ideation, No Homicidal ideation, No Overt delusions Perceptual Disturbances: No Auditory hallucinations, No Visual hallucinations Judgment: Limited Insight: Partial
== END 2016-10-10 11:35 | disposition home or self-care (01) | DRG 918 ==
LOC: EMEROO 11:16 → 1ANU 17:36
PROVIDERS: ADMIT Psychiatry & Neurology Psychiatry; ATTEND Psychiatry & Neurology Psychiatry

== ENCOUNTER → 2018-07-24 22:42 | Observation (INO) ==
--- NOTE | 2018-07-24 20:37 | OB/GYN Progress Note ---
Date of Encounter: 07/24/18 Time of Encounter: 20:25 - Assessment and Plan (1) 21 weeks gestation of Current Visit: Yes Status: Acute Urine - indicative of UTI; culture pending. One dose of macrobid PO and discharge home with Rx Vaginosis panel - gardnerella +; Rx for flagyl given FHTs -appropriate for gestation Discharge home with PTL precautions Follow up in office as scheduled and PRN POC per consult with Dr Troy (2) Cramping affecting , antepartum Current Visit: Yes Status: Acute Subjective - Subjective Principal diagnosis: Cramping Interval history: Ms Nunez is a at 21 weeks 6 days that presents to triage with c/o cramping and lower back pain. She is seen by Dr Gill for her care. She has a significant medical history for a 1A psychology admission. She states positive movement. She denies leaking of fluid, headaches, vision changes, epigastric pain, and vaginal discharge/bleeding. Antepartum ROS: movement normal Objective - Exam FHR: auscultation normal, category 1 FHR comments: 160 - appropriate for gestation age. No contractions per toco. Auscultation: bilateral: normal Abdomen: Present: normal appearance, soft, gravid Uterus: Present: normal
[2018-07-24 21:21] LABS: Bilirubin,Urine Negative (Negative); Blood,Urine Negative (Negative); Clarity,Urine Cloudy (Clear); Color,Urine Dark Yellow (Yellow); Glucose,Urine (UA) Normal (Normal); Ketones,Urine Trace mg/dL (Negative); Leukocyte Esterase,Urine Large (Negative); Nitrite,Urine Positive (Negative); Protein,Urine 30 mg/dL (Neg-Trace); Specific Gravity,Urine 1.016 (1.010-1.025)
[2018-07-24 21:23] LABS: Bacteria,Urine Many per hpf (None-Few); Hyaline Casts,Urine None Seen per lpf (None-Few); Squamous Epithelial Cell,Urine Many per lpf (None-Few); WBC,Urine TNTC per hpf (0-3)
[2018-07-24 21:32] LABS: Amphetamine Screen,Urine Negative ng/mL (Cutoff=1000); Barbiturate Screen,Urine Negative ng/mL (Cutoff=200); Benzodiazepines Screen,Urine Negative ng/mL (Cutoff=200); Cannabinoid Screen,Urine Negative ng/mL (Cutoff = 50); Cocaine Screen,Urine Negative ng/mL (Cutoff= 300); Opiate Screen,Urine Negative ng/mL (Cutoff=300); Phencyclidine Screen,Urine Negative ng/mL (Cutoff=25)
[2018-07-24 22:09] LABS: Candida DNA Not Detected (Not Detect); Gardnerella DNA DETECTED (Not Detect); Trichomonas DNA Not Detected (Not Detect)
[~2018-07-24 22:42] MED LIST: Nitrofurantoin (BID) 100 MG CAPSULE PO SCH
== END | disposition home or self-care (01) ==
LOC: 1NENULAB
PROVIDERS: ADMIT Advanced Practice Midwife; ATTEND Advanced Practice Midwife

== ENCOUNTER 2018-09-13 10:54 | Observation (INO) ==
[2018-09-13 11:06] VITALS: BP 120/67
[2018-09-13 11:30] LABS: Bilirubin,Urine Negative (Negative); Blood,Urine Negative (Negative); Clarity,Urine Cloudy (Clear); Color,Urine Yellow (Yellow); Glucose,Urine (UA) Normal (Normal); Ketones,Urine Negative (Negative); Leukocyte Esterase,Urine Negative (Negative); Nitrite,Urine Negative (Negative); PH,Urine 7.5 pH Units (5.0-8.0); Protein,Urine Trace mg/dL (Neg-Trace); Specific Gravity,Urine 1.013 (1.010-1.025); Urobilinogen,Urine Normal (Normal)
[2018-09-13 11:32] LABS: Bacteria,Urine Few per hpf (None-Few); Hyaline Casts,Urine None Seen per lpf (None-Few); Squamous Epithelial Cell,Urine Many per lpf (None-Few)
[2018-09-13 11:33] LABS: Amphetamine Screen,Urine Negative ng/mL (Cutoff=1000); Barbiturate Screen,Urine Negative ng/mL (Cutoff=200); Benzodiazepines Screen,Urine Negative ng/mL (Cutoff=200); Cannabinoid Screen,Urine Negative ng/mL (Cutoff = 50); Cocaine Screen,Urine Negative ng/mL (Cutoff= 300); Opiate Screen,Urine Negative ng/mL (Cutoff=300); Phencyclidine Screen,Urine Negative ng/mL (Cutoff=25)
[2018-09-13] MEDS ORDERED: Acetaminophen 325 MG TABLET PO ONE (11:36)
--- NOTE | 2018-09-13 11:38 | OB/GYN Progress Note ---
Date of Encounter: 09/13/18 Time of Encounter: 11:35 - Assessment and Plan (1) 29 weeks gestation of Current Visit: Yes Status: Acute NST reactive Urinalysis - likely contaminated Vaginosis - negative Anticipate discharge home with labor precautions and po hydration Follow up in office with routine care as scheduled (tomorrow) and PRN POC per consult with Dr Clinton (2) NST (non-stress test) reactive Current Visit: Yes Status: Acute (3) Decreased movement Current Visit: Yes Status: Acute Qualifiers: Fetus number: single or unspecified fetus Trimester: third trimester Qualified Code(s): O36.8130 - Decreased movements, third trimester, not applicable or unspecified (4) Vaginal discharge during in third trimester Current Visit: Yes Status: Acute Subjective - Subjective Principal diagnosis: vaginal discharge; decreased movement Interval history: Ms Nunez is a at 29 weeks and 1 day that presents to triage with c/o decreased movement and leaking of fluid x 2 hours. She denies intercourse and an submersion in water in the past 48 hours. She states last time she felt her baby move was last night. She c/o cramping and rectal pressure. She has had a normal course; she is a CF carrier and the FOB refused testing as they are no longer together. She is seen by Dr Gill for her care. Antepartum ROS: loss of fluid, no movement normal Objective - Vital Signs Vital Signs: Vital Signs Temp Pulse Resp BP Pulse Ox 09/13/18 11:05 98.2 F 101 18 120/67 98 Intake and Output 09/12/18 09/13/18 09/13/18 23:59 07:59 15:59 Other: Weight 93.5 kg Patient Weight 09/13/18 23:59 Weight 93.5 kg - Exam FHR: auscultation normal, category 1 FHR comments: Baseline 150 Cat 1 tracing appropriate for gestation Few contractions noted. Auscultation: bilateral: normal Abdomen: Present: normal appearance, soft, gravid Uterus: Present: normal. Absent: firm, tenderness Cervical dilation: Closed Cervix effacement: 50 station: -2 Comments: Nitrazine negative; pooling negative; cervix appears visually closed Thick white malodorous discharge noted in vaginal vault; vaginosis panel collected and pending - Labs Labs: Abnormal lab results Urine Clarity Cloudy (Clear) A 09/13/18 11:17 Urine Microscopic RBC 3-5 per hpf (0-3) H 09/13/18 11:17 Urine Microscopic WBC 3-5 per hpf (0-3) H 09/13/18 11:17 Ur Squamous Epith Cells Many per lpf (None-Few) H 09/13/18 11:17
[2018-09-13 12:06] LABS: Candida DNA Not Detected (Not Detect); Gardnerella DNA Not Detected (Not Detect); Trichomonas DNA Not Detected (Not Detect)
== END 2018-09-13 12:45 | disposition home or self-care (01) ==
LOC: 1NENULAB
PROVIDERS: ADMIT Advanced Practice Midwife; ATTEND Advanced Practice Midwife

== ENCOUNTER → 2018-10-16 14:15 | Observation (INO) ==
[2018-10-16 11:50] LABS: Bilirubin,Urine Negative (Negative); Blood,Urine Negative (Negative); Clarity,Urine Cloudy (Clear); Color,Urine Yellow (Yellow); Glucose,Urine (UA) Normal (Normal); Ketones,Urine Negative (Negative); Leukocyte Esterase,Urine Small (Negative); Nitrite,Urine Negative (Negative); PH,Urine 6.5 pH Units (5.0-8.0); Protein,Urine Trace mg/dL (Neg-Trace); Specific Gravity,Urine 1.014 (1.010-1.025); Urobilinogen,Urine Normal (Normal)
[2018-10-16 11:54] LABS: Bacteria,Urine Many per hpf (None-Few); Hyaline Casts,Urine Few per lpf (None-Few); Squamous Epithelial Cell,Urine Many per lpf (None-Few); WBC,Urine 30-50 per hpf (0-3)
[2018-10-16 12:06] LABS: Amphetamine Screen,Urine Negative ng/mL (Cutoff=1000); Barbiturate Screen,Urine Negative ng/mL (Cutoff=200); Benzodiazepines Screen,Urine Negative ng/mL (Cutoff=200); Cannabinoid Screen,Urine Negative ng/mL (Cutoff = 50); Cocaine Screen,Urine Negative ng/mL (Cutoff= 300); Opiate Screen,Urine Negative ng/mL (Cutoff=300); Phencyclidine Screen,Urine Negative ng/mL (Cutoff=25)
[2018-10-16 13:27] LABS: Bilirubin,Urine Negative (Negative); Blood,Urine Negative (Negative); Clarity,Urine Cloudy (Clear); Color,Urine Yellow (Yellow); Glucose,Urine (UA) Normal (Normal); Ketones,Urine Negative (Negative); Leukocyte Esterase,Urine Trace (Negative); Nitrite,Urine Negative (Negative); PH,Urine 6.5 pH Units (5.0-8.0); Protein,Urine Negative (Neg-Trace); Specific Gravity,Urine < 1.005 (1.010-1.025); Urobilinogen,Urine Normal (Normal)
[2018-10-16 13:30] LABS: Bacteria,Urine Moderate per hpf (None-Few); Hyaline Casts,Urine None Seen per lpf (None-Few); Squamous Epithelial Cell,Urine Many per lpf (None-Few)
[2018-10-16 13:44] LABS: RBC,Urine 0-3 per hpf (0-3)
--- NOTE | 2018-10-16 13:49 | Discharge Summary ---
Date of Encounter: 10/16/18 Time of Encounter: 13:49 - Discharge Diagnosis (1) 33 weeks gestation of Priority: Primary Status: Acute Comments: Admitted to observation for labor evaluation (2) Pelvic pain affecting in third trimester, antepartum Priority: Secondary Status: Acute Comments: Patient comes with complaint of pain at symphisis pubis (3) Decreased movement Priority: Secondary Status: Acute Comments: Patient with reactive FHR tracing. Qualifiers: Fetus number: single or unspecified fetus Trimester: third trimester Q ualified Code(s): O36.8130 - Decreased movements, third trimester, not applicable or unspecified (4) NST (non-stress test) reactive Priority: Secondary Status: Acute Comments: FHR 130 bpm, moderate variability, +15x15 accels, no decels. - Discharge Medications Prescriptions: No Action No Known Home Drugs 1 each .ROUTE AD each Home Medications: No Known Home Drugs 09/13/18 [History] Allergies/Adverse Reactions: Allergy/AdvReac Type Severity Reaction Status Date / Time No Known Allergies Allergy Verified 07/24/18 20:39 Data Procedures and tests throughout hospitalization: Laboratory Tests 10/16/18 10/16/18 10/16/18 11:30 11:30 13:05 Urine Color Yellow Yellow Urine Clarity Cloudy A Cloudy A Urine pH 6.5 6.5 Ur Specific [place] 1.014 < 1.005 L Urine Protein Trace Negative Urine Glucose (UA) Normal Normal Urine Ketones Negative Negative Urine Blood Negative Negative Urine Nitrite Negative Negative Urine Bilirubin Negative Negative Urine Urobilinogen Normal Normal Ur Leukocyte Esterase Small H Trace H Urine Microscopic RBC 3-5 H 0-3 Urine Microscopic WBC 30-50 H 5-15 H Ur Squamous Epith Cells Many H Many H Urine Bacteria Many H Moderate H Hyaline Casts Few None Seen Ur Culture Indicated? NO. A NO. A Urine Opiates Screen Negative Ur Barbiturates Screen Negative Ur Phencyclidine Scrn Negative Ur Amphetamines Screen Negative U Benzodiazepines Scrn Negative Urine Cocaine Screen Negative U Marijuana (THC) Screen Negative Ur Drug Screen Interp See Below Labs on day of discharge: Labs from last 24 hours 10/16/18 10/16/18 10/16/18 13:05 11:30 11:30 Urine Color Yellow Yellow Urine Clarity Cloudy A Cloudy A Urine pH 6.5 6.5 Ur Specific [place] < 1.005 L 1.014 Urine Protein Negative Trace Urine Glucose (UA) Normal Normal Urine Ketones Negative Negative Urine Blood Negative Negative Urine Nitrite Negative Negative Urine Bilirubin Negative Negative Urine Urobilinogen Normal Normal Ur Leukocyte Esterase Trace H Small H Urine Microscopic RBC 0-3 3-5 H Urine Microscopic WBC 5-15 H 30-50 H Ur Squamous Epith Cells Many H Many H Urine Bacteria Moderate H Many H Hyaline Casts None Seen Few Ur Culture Indicated? NO. A NO. A Urine Opiates Screen Negative Ur Barbiturates Screen Negative Ur Phencyclidine Scrn Negative Ur Amphetamines Screen Negative U Benzodiazepines Scrn Negative Urine Cocaine Screen Negative U Marijuana (THC) Screen Negative Ur Drug Screen Interp See Below Date of admission: 10/16/18 11:03 Discharging clinician: Elenita Cotton Anticipated date of discharge: 10/16/18 - Patient Status Disposition: Home, Self-Care Condition: Good Functional capacity at discharge: independent ambulation Overall status at discharge: patient is progressing back to baseline - Discharge Instructions - Diet and Activity Activity: resume usual activities as tolerated Diet: regular diet Hospital Course REGULATORY AFFAIRS SPEC Hospital course: Patient arrived to L&D with complaint of constant pain at symphisis pubis. States she has some symptoms of UTI like frequency, but no burning. She reports history of multiple UTI's in this . Negative CVAT. She does report decreased movement this morning, denies fluid leakage, vaginal bleeding, and contractions. We did obtain a reactive NST for gestational age and there have been no contractions on the toco monitor and patient has not felt any contractions. SVE completed, FT/thick/high. Patient is to follow up for her routine visit on 10/28/18. Time Attestation: Total time spent providing and/or coordinating discharge services: Time Spent: Less than 30 minutes Exam - Constitutional General appearance IM: A&O X 3, pleasant, no acute distress, answers questions appropriately - Cardiovascular Cardiovascular exam IM: Present: RRR, +S1, +S2 - GI/Abdominal GI/Abdominal exam IM: normal bowel sounds - Rectal Rectal exam: deferred - External exam: normal external exam - Extremities Exam Extremities exam IM: Present: full ROM, normal capillary refill, normal inspection - Neurological Exam Neurological exam: alert, normal gait, oriented X3 - VTE Reasons for not Prescribing Prophylaxis: Treatment not Indicated - Low risk for VTE
== END | disposition home or self-care (01) ==
LOC: 1NENULAB
PROVIDERS: ADMIT Registered Nurse; ATTEND Registered Nurse

== ENCOUNTER 2018-11-17 01:48 | Observation (INO) ==
[2018-11-17 02:08] VITALS: BP 127/70
--- NOTE | 2018-11-17 04:12 | Discharge Summary ---
Date of Encounter: 11/17/18 Time of Encounter: 04:11 - Discharge Diagnosis (1) 38 weeks gestation of Priority: Primary Status: Acute Comments: Admit to observation for complaint of possible rupture of membranes. Fern negative (2) NST (non-stress test) reactive Priority: Secondary Status: Acute Comments: FHR 125 bpm, moderate variability, +15x15 accels, no decels. - Discharge Medications Prescriptions: No Action No Known Home Drugs 1 each .ROUTE AD each Home Medications: No Known Home Drugs 09/13/18 [History] Allergies/Adverse Reactions: Allergy/AdvReac Type Severity Reaction Status Date / Time No Known Allergies Allergy Verified 07/24/18 20:39 Date of admission: 11/17/18 01:48 Discharging clinician: Elenita Cotton Anticipated date of discharge: 11/17/18 - Patient Status Disposition: Home, Self-Care Condition: Good Functional capacity at discharge: independent ambulation Overall status at discharge: patient is progressing back to baseline - Discharge Instructions Follow Up With: Suri Gill DO [Partnered Physician] - Additional Instructions: LABOR AND DELIVERY DISCHARGE INSTRUCTIONS Signs and Symptoms to be Reported to your Doctor Immediately: * Sudden gush, continuous or intermittent lead of fluid from vagina (note the time of gush and color of fluid) * Onset of bright red vaginal bleeding with or without pain (if you had a vaginal exam during this visit you may notice some dark red spotting. This is normal.) * Contractions that are 5 minutes apart (from the beginning of one contraction to the beginning of the next) and last 45-60 seonds; contractions that you can no longer walk, talk or laugh through. * A change in the baby's activity. This could be an increase or decrease in activity. * Severe headache which does not go away with tylenol. * Sudden swelling in the face, hands, arms and/or legs. * Upper abdominal pain - sometimes associated with heartburn or nausea and is not relieved by Maalox, Mylanta or Tums. * Kick Counts __ One hour after a meal, lay down on one side in a quiet place. Count the number of time the baby moves during an hour. If less than 6 movements, notify your physician Diet: *Force fluids, 8 to 10 tall glasses of fluid per day - may include popsicles and jello *Limit caffeine - this includes chocolate, coffee, tea, any soft drink containing such as all khari, Rigo Yellow and Mountain Dew - Diet and Activity Activity: resume usual activities as tolerated Diet: regular diet Hospital Course [employer] Hospital course: Amna is a at 38w3d who presents to L&D with complaints of possible ROM after having intercourse last night. She reports positive movement and denies vaginal bleeding. Reports some back pain as well. She does have an appointment with Dr. Gill today for routine visit. Her fern was negative as well as nitrazine. Her SVE was unchanged after > 1 hour and remains 4cm/thick/-2. She is to follow up with Dr. Gill today and was instructed to take Tylenol for discomfort. Time Attestation: Total time spent providing and/or coordinating discharge services: Time Spent: Less than 30 minutes Exam - Constitutional Vitals: Temp Pulse Resp BP 98.3 F 86 15 127/70 11/17/18 01:58 11/17/18 01:58 11/17/18 01:58 11/17/18 01:58 General appearance IM: A&O X 3, pleasant, no acute distress, answers questions appropriately - Respiratory Respiratory exam: Present: CTAB - Cardiovascular Cardiovascular exam IM: Present: RRR, +S1, +S2 - GI/Abdominal GI/Abdominal exam IM: normal bowel sounds, soft - Rectal Rectal exam: deferred - Extremities Exam Extremities exam IM: Present: full ROM, normal capillary refill, normal inspection - Neurological Exam Neurological exam: alert, normal gait, oriented X3 - VTE Reasons for not Prescribing Prophylaxis: Treatment not Indicated - Low risk for VTE
[2018-11-17 04:39] LABS: Candida DNA Not Detected (Not Detect); Gardnerella DNA Not Detected (Not Detect); Trichomonas DNA Not Detected (Not Detect)
== END 2018-11-17 04:16 | disposition home or self-care (01) ==
LOC: 1NENULAB
PROVIDERS: ADMIT Registered Nurse; ATTEND Registered Nurse